=== PATIENT | female | born 1940 | race Caucasian/White ===

== ENCOUNTER 2018-03-06 14:31 | Outpatient (CLI) | payer MEDICARE, BC | END 2018-03-06 14:32 | disposition home or self-care (01) | LOC: BICRAD 14:31 | PROVIDERS: ATTEND Internal Medicine | DX: S29.9XXA Unspecified injury of thorax, initial encounter (principal); S39.92XA Unspecified injury of lower back, initial encounter; M25.572 Pain in left ankle and joints of left foot; M25.571 Pain in right ankle and joints of right foot; M79.671 Pain in right foot; M79.672 Pain in left foot; R07.89 Other chest pain; M54.5 Low back pain; R07.81 Pleurodynia; M47.896 Other spondylosis, lumbar region; M41.9 Scoliosis, unspecified; I70.0 Atherosclerosis of aorta; W19.XXXA Unspecified fall, initial encounter | CPT/HCPCS: 71046; 72100; 72220 ==